=== PATIENT | female | born 1990 | race Caucasian/White ===

== ENCOUNTER 2017-09-07 16:13 | Emergency (ER) | payer OTHER ==
[2017-09-07 16:19] VITALS: BP 135/77; PULSE 87; RESP 16; TEMP 97.6; O2SAT 99
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
== END 2017-09-07 19:11 | disposition home or self-care (01) ==
LOC: H.ER 16:13
DX: S16.1XXA Strain of muscle, fascia and tendon at neck level, initial encounter (principal); V43.52XA Car driver injured in collision with other type car in traffic accident, initial encounter; Y92.410 Unspecified street and highway as the place of occurrence of the external cause